=== PATIENT | female | born 1990 | race Caucasian/White ===

== ENCOUNTER 2017-08-18 12:37 | Emergency (ER) | payer BC ==
[2017-08-18] MEDS ORDERED: Ketorolac INJ* 60 MG/2 ML VIAL IM ONE (14:42)
[2017-08-18] MEDS ORDERED: Prochlorperazine SUPP* 25 MG SUPP PR ONE (14:42)
--- NOTE | 2017-08-18 14:48 | UC ---
Headache HPI - HPI Summary HPI Summary: Started with migraine headache for the last 2 days with photophobia, nausea and dry heaves. Maxalt and zofran have not resolved. - History Of Current Complaint Chief Complaint: UCHeadache Stated Complaint: MIGRAINE Time Seen by Provider: 08/18/17 14:35 Hx Obtained From: Patient Hx Last Menstrual Period: month ago - has nexplanon ?: No Onset/Duration: Sudden Onset, Lasting Days - 2, Still Present Onset Of Symptoms: Sudden - typical migraine symptoms. Initially Headache Was: Moderate Currently Pain Is: Moderate Timing: Constant Character: Throbbing, Migraine Location of Headache: Diffuse Aggravating Factor(s): Bright Lights Allevating Factor(s): Nothing Associated Signs And Symptoms: Positive: Nausea, Vomiting. Negative: Seizure, Sinus Pressure, Fever, Neck Pain, Neck Stiffness, Decreased LOC - Risk Factors SAH Risk Factors: Negative Meningitis Risk Factors: Negative SDH Risk Factors: Negative - Allergies/Home Medications Allergies/Adverse Reactions: Allergies Allergy/AdvReac Type Severity Reaction Status Date / Time No Known Allergies Allergy Verified 08/18/17 12:46 Home Medications: Home Medications Etonogestrel [Nexplanon] 68 mg IMPLANT SEE INSTRUCTIONS 08/18/17 [History Confirmed 08/18/17] Magnesium 250 mg PO BID 08/18/17 [History Confirmed 08/18/17] Multivitamins/Minerals TAB* [Thera M Plus TAB*] 1 tab PO DAILY 08/18/17 [ History Confirmed 08/18/17] Ondansetron ODT TAB* [Zofran 4 MG Odt TAB*] 4 mg PO Q6H PRN 08/18/17 [History Confirmed 08/18/17] Rizatriptan ODT (NF) [Maxalt-BIOLOGICAL SCIENCE AIDE (NF)] 10 mg PO DAILY PRN 08/18/17 [History Confirmed 08/18/17] Verapamil TAB* [Calan TAB*] 80 mg PO BID 08/18/17 [History Confirmed 08/18/17] PMH/Surg Hx/FS Hx/Imm Hx Neurological History: Migraine - Surgical History Surgical History: Yes Surgery Procedure, Year, and Place: tonsillectomy 2015 - Family History Known Family History: Negative: Cardiac Disease, Hypertension, Diabetes - Social History Occupation: Employed Full-time Lives: With Family - fiance Alcohol Use: Occasionally Alcohol Amount: TWICE A MONTH MAYBE Substance Use Type: None Smoking Status (MU): Never Smoked Tobacco Have You Smoked in the Last Year: No - Immunization History Most Recent Influenza Vaccination: 08/2015 Review of Systems Eyes: Photophobia Gastrointestinal: Vomiting, Nausea Neurological: Headache Is Patient Immunocompromised?: No All Other Systems Reviewed And Are Negative: Yes Physical Exam Triage Information Reviewed: Yes Appearance: Well-Appearing, Well-Nourished, Pain Distress - wearing hat over eyes with lights off. Vital Signs: Initial Vital Signs Temp 98.9 F 08/18/17 12:49 Pulse 69 08/18/17 12:49 Resp 16 08/18/17 12:49 BP 104/56 08/18/17 12:49 Pulse Ox 99 08/18/17 12:49 Vital Signs Reviewed: Yes ENT: Positive: Pharynx normal, TMs normal Neck exam: Normal Respiratory Exam: Normal Cardiovascular Exam: Normal Abdominal Exam: Normal Bowel Sounds: Positive: Present Musculoskeletal Exam: Normal Neurological Exam: Normal Psychological Exam: Normal Skin Exam: Normal Re-Evaluation - Re-Evaluation First Eval Re-Evaluation Time: 15:34 Change: Improved - Headache has lessened. 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 If persistent severe migraines, look into topiramate for prevention.
[2017-08-18] MEDS ORDERED: methylPREDNISolone 125 MG* 2 ML VIAL IM ONE (14:49)
[2017-08-18 15:32] VITALS: BP 105/67
== END 2017-08-18 15:41 | disposition home or self-care (01) ==
LOC: UCCORT 12:37
DX: G43.801 Other migraine, not intractable, with status migrainosus (principal)
CPT/HCPCS: 99212; A9270-GY; G0463; J1885; J2930

== ENCOUNTER 2017-11-13 16:34 | Emergency (ER) | payer BC ==
--- NOTE | 2017-11-13 18:08 | UC ---
Respiratory Complaint HPI - HPI Summary HPI Summary: 27 year old female presents with cough, congestion, fever, and headache. - History of Current Complaint Stated Complaint: CHANDAN,COUGH,FEVER Time Seen by Provider: 11/13/17 18:08 Hx Obtained From: Patient Hx Last Menstrual Period: month ago - has nexplanon Onset/Duration: Sudden Onset Severity Initially: Moderate Severity Currently: Moderate Pain Scale Used: 0-10 Numeric - 5 Character: Cough: Nonproductive Alleviating Factors: Bronchodilator Associated Signs And Symptoms: Positive: Wheezing - Allergies/Home Medications Allergies/Adverse Reactions: Allergies Allergy/AdvReac Type Severity Reaction Status Date / Time No Known Allergies Allergy Verified 11/13/17 18:18 PMH/Surg Hx/FS Hx/Imm Hx Previously Healthy: Yes - Surgical History Surgical History: Yes Surgery Procedure, Year, and Place: tonsillectomy 2014 - Family History Known Family History: Negative: Cardiac Disease, Hypertension, Diabetes - Social History Alcohol Use: Occasionally Alcohol Amount: TWICE A MONTH MAYBE Substance Use Type: None Smoking Status (MU): Never Smoked Tobacco Have You Smoked in the Last Year: No - Immunization History Most Recent Influenza Vaccination: 08/2015 Review of Systems Constitutional: Fever, Chills Skin: Negative Eyes: Negative ENT: Ear Ache, Nasal Discharge, Sinus Congestion, Sinus Pain/Tenderness Respiratory: Cough Cardiovascular: Negative Gastrointestinal: Negative Genitourinary: Negative Motor: Negative Neurovascular: Negative Musculoskeletal: Negative Neurological: Negative Psychological: Negative All Other Systems Reviewed And Are Negative: Yes Physical Exam Triage Information Reviewed: Yes Vital Signs Reviewed: Yes Eye Exam: Normal ENT: Positive: Pharyngeal erythema, Nasal congestion, Nasal drainage, Tonsillar swelling, Sinus tenderness Dental Exam: Normal Neck exam: Normal Neck: Positive: 1 Respiratory Exam: Normal Respiratory: Positive: Decreased breath sounds Cardiovascular Exam: Normal Abdominal Exam: Normal Musculoskeletal Exam: Normal Neurological Exam: Normal Psychological Exam: Normal Skin Exam: Normal Respiratory Course/Dx - Differential Dx/Diagnosis Provider Diagnoses: cough. sinus congestion. fever. body aches Discharge - Discharge Plan Condition: Stable Disposition: HOME Prescriptions: Amoxicillin/Clavulanate TAB* [Augmentin TAB 875*] 875 mg PO BID #20 tab Guaifenesin-Codeine [Cheratussin AC] 1 teasp PO BEDTIME PRN #120 ml MDD 5 ml PRN Reason: Cough LoraTADine TAB(NF) [Claritin 10 MG TAB(NF)] 10 mg PO DAILY #30 tab Patient Education Materials: Sinusitis (ED) Referrals: Sepideh Gould NP [Primary Care Provider] -
[2017-11-13 18:19] VITALS: BP 111/72
== END 2017-11-13 18:29 | disposition home or self-care (01) ==
LOC: UCCORT 16:34
DX: R05 Cough (principal); R09.81 Nasal congestion; R50.9 Fever, unspecified; R52 Pain, unspecified; R51 Headache
CPT/HCPCS: 99212; G0463

== ENCOUNTER 2018-06-11 14:55 | Emergency (ER) | payer BC ==
[2018-06-11 15:14] VITALS: BP 120/61
--- NOTE | 2018-06-11 15:18 | UC ---
Complaint Female HPI - HPI Summary HPI Summary: burning with urination x 2 days. no abdominal pain or fever. - History Of Current Complaint Stated Complaint: URINARY COMPLAINT Time Seen by Provider: 06/11/18 15:05 Hx Obtained From: Patient Hx Last Menstrual Period: month ago - has nexplanon Onset/Duration: Gradual Onset Timing: Constant Aggravating Factor(s): Nothing Alleviating Factor(s): Nothing Associated Signs And Symptoms: Negative: Fever, Vaginal Bleeding/Discharge - Allergies/Home Medications Allergies/Adverse Reactions: Allergies Allergy/AdvReac Type Severity Reaction Status Date / Time No Known Allergies Allergy Verified 06/11/18 15:10 Home Medications: Home Medications Amitriptyline TAB* [Elavil TAB*] 25 mg PO BEDTIME 06/11/18 [History Confirmed ] PMH/Surg Hx/FS Hx/Imm Hx - Additional Past Medical History Additional PMH: allergies, uti Neurological History: Migraine - Surgical History Surgical History: Yes Surgery Procedure, Year, and Place: tonsillectomy 2014 - Family History Known Family History: Positive: Other - [place] Negative: Cardiac Disease, Hypertension, Diabetes - Social History Occupation: Employed Full-time Lives: With Family Alcohol Use: Occasionally Alcohol Amount: TWICE A MONTH MAYBE Substance Use Type: None Smoking Status (MU): Never Smoked Tobacco Have You Smoked in the Last Year: No - Immunization History Most Recent Influenza Vaccination: 08/2015 Vaccination Up to Date: Yes Review of Systems Constitutional: Negative Skin: Negative Eyes: Negative ENT: Negative Respiratory: Negative Cardiovascular: Negative Gastrointestinal: Negative Genitourinary: Dysuria Motor: Negative Neurovascular: Negative Musculoskeletal: Negative Neurological: Negative Psychological: Negative Is Patient Immunocompromised?: No All Other Systems Reviewed And Are Negative: Yes Physical Exam Triage Information Reviewed: Yes Appearance: Well-Appearing Vital Signs Reviewed: Yes Eyes: Positive: Conjunctiva Clear ENT: Positive: Normal ENT inspection Neck: Positive: Supple, Nontender, No Lymphadenopathy Respiratory: Positive: Lungs clear, Normal breath sounds Cardiovascular: Positive: RRR, No Murmur Abdomen Description: Positive: Nontender, No Organomegaly, Soft. Negative: CVA Tenderness (R), CVA Tenderness (L) Bowel Sounds: Positive: Present Musculoskeletal: Positive: ROM Intact Neurological: Positive: Alert Psychological: Positive: Age Appropriate Behavior Skin Exam: Normal Diagnostics - Laboratory Diagnostic Studies Completed/Ordered: u/a positive leukocytes with culture pending Complaint Female Dx - Course Course Of Treatment: hx/pe c/w uti. pt request diflucan for yeasy vaginitis from antibiotic use. she agrees to avoid zofran to avoid polong QT. - Differential Dx/Diagnosis Provider Diagnoses: UTI Discharge - Sign-Out/Discharge Documenting (check all that apply): Patient Departure - Discharge Plan Condition: Stable Disposition: HOME Prescriptions: Fluconazole 150 MG (NF) [Diflucan 150 mg (NF)] 150 mg PO ONCE #1 tab Nitrofurantoin Monohyd/M-Cryst [Macrobid 100 mg Capsule] 100 mg PO BID #10 cap Patient Education Materials: Urinary Tract Infection in Women (ED) Referrals: Zulema Veronica NP [Primary Care Provider] - 7 Days - Billing Disposition and Condition Condition: STABLE Disposition: Home
== END 2018-06-11 15:23 | disposition home or self-care (01) ==
LOC: UCCORT 14:55
DX: N39.0 Urinary tract infection, site not specified (principal); G43.909 Migraine, unspecified, not intractable, without status migrainosus; Z79.899 Other long term (current) drug therapy
CPT/HCPCS: 81003; 87086; 99212; G0463

== ENCOUNTER 2018-11-17 09:32 | Emergency (ER) | payer BC ==
[2018-11-17 10:32] VITALS: BP 131/78
--- NOTE | 2018-11-17 10:38 | UC ---
UC General HPI - HPI Summary HPI Summary: c/o body aches, fatigue, cough, and headache beginning yesterday afternoon. temp 100.4F last night. has had some cough x 1 week with a little EMERY. vx1 yesterday due to the HASKINS. - History of Current Complaint Stated Complaint: FLU LIKE SYMPTOMS Hx Obtained From: Patient Hx Last Menstrual Period: 11/09/18 Timing: Constant Pain Intensity: 1 Associated Signs & Symptoms: Negative: Diarrhea, Dysuria - Allergy/Home Medications Allergies/Adverse Reactions: Allergies Allergy/AdvReac Type Severity Reaction Status Date / Time No Known Allergies Allergy Verified 11/17/18 10:29 Home Medications: Home Medications Acetaminophen [Acetaminophen Extra Strength] 1,000 mg PO Q6H PRN 11/17/18 [ History Confirmed 11/17/18] PMH/Surg Hx/FS Hx/Imm Hx Neurological History: Migraine - Surgical History Surgical History: Yes Surgery Procedure, Year, and Place: tonsillectomy 2014 - Family History Known Family History: Positive: Other - [place] Negative: Cardiac Disease, Hypertension, Diabetes - Social History Occupation: Employed Full-time Alcohol Use: Occasionally Alcohol Amount: TWICE A MONTH MAYBE Substance Use Type: None Smoking Status (MU): Never Smoked Tobacco Have You Smoked in the Last Year: No - Immunization History Most Recent Influenza Vaccination: 08/2015 Vaccination Up to Date: Yes Review of Systems All Other Systems Reviewed And Are Negative: Yes Constitutional: Positive: Fever, Chills, Fatigue Skin: Positive: Negative Eyes: Positive: Negative ENT: Positive: Negative Respiratory: Positive: Shortness Of Breath, Cough Cardiovascular: Positive: Negative Gastrointestinal: Positive: Vomiting - x1 Genitourinary: Positive: Negative Motor: Positive: Negative Neurovascular: Positive: Negative Musculoskeletal: Positive: Myalgia Neurological: Positive: Headache Psychological: Positive: Negative Is Patient Immunocompromised?: No Physical Exam Triage Information Reviewed: Yes Appearance: Ill-Appearing - but non toxic Vital Signs: Initial Vital Signs Temp 97.4 F 11/17/18 10:29 Pulse 95 11/17/18 10:29 Resp 22 11/17/18 10:29 BP 131/78 11/17/18 10:29 Pulse Ox 100 11/17/18 10:29 Vital Signs Reviewed: Yes Eyes: Positive: Conjunctiva Clear ENT: Positive: Pharynx normal, TMs normal. Negative: Nasal congestion, Nasal drainage Neck: Positive: Supple, Nontender, No Lymphadenopathy. Negative: Nuchal Rigidity Respiratory: Positive: No respiratory distress, Decreased breath sounds. Negative: Crackles, Wheezing Cardiovascular: Positive: RRR, No Murmur Abdomen Description: Positive: Nontender, No Organomegaly, Soft Bowel Sounds: Positive: Present Musculoskeletal: Positive: ROM Intact Neurological: Positive: Alert Psychological: Positive: Age Appropriate Behavior Skin Exam: Normal Diagnostics - Laboratory Diagnostic Studies Completed/Ordered: rapid flu=negative - Radiology No standard instances Radiology Interpretation Completed By: Radiologist - No radiographic evidence of acute cardiopulmonary disease. Re-Evaluation - Re-Evaluation First Eval Re-Evaluation Time: 11:23 Change: Improved - better aeration. pt notes easier to take a deep breath. Course/Dx - Course Course Of Treatment: cxr and rapid flu are negative. nothing to suggest antibiotic treatment. - Diagnoses Provider Diagnosis: Influenza-like illness Discharge - Sign-Out/Discharge Documenting (check all that apply): Patient Departure All imaging exams completed and their final reports reviewed: Yes - Discharge Plan Condition: Stable Disposition: HOME Prescriptions: Albuterol HFA INHALER* [Ventolin HFA Inhaler*] 2 puff INH Q6H #1 mdi Patient Education Materials: Viral Syndrome (ED) Forms: *Work Release Referrals: Zulema Veronica NP [Primary Care Provider] - 5 Days - Billing Disposition and Condition Condition: STABLE Disposition: Home - Attestation Statements Provider Attestation: I was available for consult. This patient was seen by the POWER. The patient was not presented to , seen by or examined by [facility] -Monique Corrales MD
[2018-11-17] MEDS ORDERED: Albuterol 2.5 MG/3 ML NEB.SOL* (0.083%) INH ONE (11:00)
== END 2018-11-17 11:33 | disposition home or self-care (01) ==
LOC: UCCORT 09:32
DX: J11.1 Influenza due to unidentified influenza virus with other respiratory manifestations (principal); G43.909 Migraine, unspecified, not intractable, without status migrainosus
CPT/HCPCS: 71046; 99212; G0463

== ENCOUNTER 2023-04-19 10:49 | Inpatient (IN) ==
[2023-04-19] MEDS ORDERED: Dinoprostone 10 MG VAG.SUPP VAGINAL ONE (10:53)
[2023-04-19 12:38] LABS: Urine Benzodiazepine Screen None Detected (None Detect); Urine Cannabinoids Screen None Detected (None Detect); Urine Opiates Screen None Detected (None Detect)
[2023-04-20] MEDS ORDERED: Oxytocin in LR 20,000 MILLI.UNIT/1,000 ML BAG IV SCH (09:00)
[2023-04-20 09:48] LABS: ABS Basophils 0.1 10^3/uL (0.0-0.1); ABS Eosinophils 0.1 10^3/uL (0.0-0.5); ABS Lymphocytes 1.8 10^3/uL (1.0-4.8); ABS Monocytes 0.6 10^3/uL (0.0-0.9); ABS Neutrophils 7.9 10^3/uL (1.5-7.6); ABS Nucleated RBC 0.01 10^3/ul; Eosinophil % 0.8 %; Hematocrit 36.3 % (35-45); Hemoglobin 12.9 g/dL (11.5-14.3); Lymphocyte % 17.4 %; Mean Corpuscular Hemoglobin 30.3 pg (27-33); Mean Corpuscular Hgb Conc 35.5 g/dL (31-36); Mean Corpuscular Volume 85.4 fL (80-97); Mean Platelet Volume 9.1 fL (7.5-11.2); Nucleated Red Blood Cells % 0.1 /100 WBC (0.0-0.4); Platelet Count 235 10^3/uL (150-450); Red Blood Count 4.25 10^6/uL (3.63-4.92); Red Cell Distribution Width 14.7 % (12-17); White Blood Count 10.5 10^3/uL (3.8-11.8)
[2023-04-20] MEDS ORDERED: Lactated Ringers 1000 ml BAG 1,000 ML IV ONE ×2 (10:14→12:55)
[2023-04-20] MEDS ORDERED: OBEPIDURAL (200 ML) 200 ML EPIDURAL ONE (12:03)
[2023-04-20] MEDS ORDERED: Lidocaine 1.5% EPI 1:200,000 30 ML SDV ONE (12:04)
[2023-04-20] MEDS ORDERED: Sodium Citrate/Citric Acid LIQ 15 ML UDC PO PRN (12:55)
[2023-04-20] MEDS ORDERED: Phenylephrine 40 mcg/mL 10mL (400mcg) SYRINGE IV PUSH PRN ×2 (12:55)
[2023-04-20] MEDS ORDERED: Lactated Ringers 1000 ml BAG 1,000 ML IV SCH ×2 (13:00→19:00)
[2023-04-20] MEDS ORDERED: OBEPIDURAL (200 ML) 200 ML EPIDURAL SCH (13:00)
[2023-04-20 14:59] LABS: Urine Appearance Cloudy; Urine Bilirubin Negative (Negative); Urine Blood 2+ (Negative); Urine Color Yellow; Urine Glucose Negative (Negative); Urine Ketones 1+ (Negative); Urine Nitrite Negative (Negative); Urine Protein 1+(30 mg/dL) (Negative); Urine Specific Gravity 1.013 (1.002-1.030); Urine Urobilinogen Negative (Negative)
[2023-04-20 15:06] LABS: Urine Bacteria Absent (Absent); Urine Red Blood Cell 3+(>10/hpf) (Absent); Urine Squamous Epithelial Cell Present (Absent); Urine Transitional Epithelial Present (Absent); Urine White Blood Cell 1+(6-10/hpf) (Absent)
[2023-04-20] MEDS ORDERED: Witch Hazel PAD JAR TOPICAL PRN (18:15)
[2023-04-20] MEDS ORDERED: Oxytocin 10 UNITS/ML 1 ML VIAL IM PRN (18:15)
[2023-04-20] MEDS: Dibucaine 1% OINT 28.35 GM TUBE PR PRN (19:10)
[2023-04-21 07:31] LABS: ABS Monocytes 0.7 10^3/uL (0.0-0.9); ABS Nucleated RBC 0.01 10^3/ul; Eosinophil % 0.3 %; Hematocrit 30.4 % (35-45); Hemoglobin 10.7 g/dL (11.5-14.3); Lymphocyte % 13.7 %; Mean Corpuscular Hemoglobin 30.6 pg (27-33); Mean Corpuscular Hgb Conc 35.3 g/dL (31-36); Mean Corpuscular Volume 86.8 fL (80-97); Mean Platelet Volume 8.3 fL (7.5-11.2); Nucleated Red Blood Cells % 0.1 /100 WBC (0.0-0.4); Platelet Count 193 10^3/uL (150-450); Red Blood Count 3.51 10^6/uL (3.63-4.92); Red Cell Distribution Width 14.5 % (12-17); White Blood Count 14.8 10^3/uL (3.8-11.8)
[2023-04-22 08:12] VITALS: BP 121/85
[2023-04-22] MEDS: Dibucaine 1% OINT 28.35 GM TUBE PR PRN (08:14)
== END 2023-04-22 13:16 | disposition home or self-care (01) | DRG 560 ==
LOC: MCHOBOUT 10:49 → MCHOB 10:54
PROVIDERS: ADMIT Midwife; ATTEND Registered Nurse